=== PATIENT | male | born 1930 | race Caucasian/White ===

== ENCOUNTER → 2016-12-03 | Outpatient (CLI) | payer MEDICARE, BC ==
[~2016-12-03] MED LIST: CALCIUM 600MG+D1 TAB PO; COLACE 100100 MG/CAP PO; DAZIDOX10 MG PO; DECADRON 1MG TAB1 MG PO; DULCOLAX S10 MG/SUPP RC; FENTANYL 25 MCG TD; FENTANYL 50MCG TD; FENTANYL TD; MIRALAX PA17 GM/Dose PO; MOTRIN 200200 MG/TAB PO; NYSTATIN POWDER15 GM TOP; OXY IR5 MG PO; PRILOSEC 20MG20 MG PO; STOOL SOFTENER100 M2 PO; TIMOLOL OU; TUMS500 MG PO; TYLENOL 500MG500 MG PO; XALATAN EYE DROPS OU; XTANDI40 MG PO; ZANTAC 150150 MG PO; ZANTAC150 MG PO
== END ==
LOC: COL.RAD 07:30
DX: C61 Malignant neoplasm of prostate (principal); C79.51 Secondary malignant neoplasm of bone; I10 Essential (primary) hypertension; M48.02 Spinal stenosis, cervical region
CPT/HCPCS: A9585

== ENCOUNTER 2017-01-04 12:41 | Inpatient (IN) | payer MEDICARE, BC ==
[~2017-01-04] VITALS: Ht 177.8 cm; Wt 94.1 kg
[~2017-01-04 12:41] MED LIST changes: -CALCIUM 600MG+D1 TAB PO; -COLACE 100100 MG/CAP PO; -DAZIDOX10 MG PO; -DECADRON 1MG TAB1 MG PO; -DULCOLAX S10 MG/SUPP RC; -FENTANYL 25 MCG TD; -FENTANYL 50MCG TD; -FENTANYL TD; -MIRALAX PA17 GM/Dose PO; -NYSTATIN POWDER15 GM TOP; -OXY IR5 MG PO; -PRILOSEC 20MG20 MG PO; -STOOL SOFTENER100 M2 PO; -TIMOLOL OU; -XTANDI40 MG PO
[2017-01-04 13:28] LABS: ADJUSTED CALCIUM 8.7 mg/dL (8.4-10.2); ALBUMIN 3.2 gm/dL (3.5-5.0); BILIRUBIN,TOTAL 1.1 mg/dL (0.0-1.0); C-REACTIVE PROTEIN 2.1 mg/dL (0.0-0.9); CALCIUM 8.1 mg/dL (8.4-10.2); CREATININE, serum 0.73 mg/dL (0.66-1.25); TOTAL PROTEIN 5.9 gm/dL (6.4-8.2)
[2017-01-04 13:32] LABS: MEAN CELL VOLUME 86 fl (80.0-100.0); MEAN CORPUSCULAR HGB CONC 35 g/dl (33.0-37.0); MEAN PLATELET VOLUME 9.8 fl (7.4-10.4); PLATELET COUNT 209 K/mm3 (130-400); RED BLOOD COUNT 2.45 M/mm3 (4.20-5.60); REDCELL DISTRIBUTION WIDTH-CV 13.3 % (11.5-14.5); WHITE BLOOD COUNT 6.5 K/mm3 (4.8-10.8)
[2017-01-04 13:35] LABS: HEMATOCRIT 21.1 % (42.0-52.0); MEAN CORPUSCULAR HEMOGLOBIN 30 pg (27.0-31.0)
[2017-01-04 13:36] LABS: ADD PATHOLOGY DIFF REVIEW NO; HEMOGLOBIN 7.3 g/dl (13.5-18.0)
[2017-01-04 13:48] LABS: PH 5 (5-8); SQUAMOUS EPITHELIAL 0-2 /hpf; URINE APPEARANCE Hazy; URINE BACTERIA None Seen /hpf; URINE BILIRUBIN Negative (NEGATIVE); URINE BLOOD Negative (NEGATIVE); URINE COLOR Yellow; URINE GLUCOSE Negative (NEGATIVE); URINE KETONE Negative (NEGATIVE); URINE RBC 0-2 /hpf; URINE UROBILINOGEN Negative (NEGATIVE); URINE WBC 0-2 /hpf
[2017-01-04 14:08] LABS: BAND 13 % (0-10); NEUTROPHILS 74 % (42.0-75.2); PLATELET ESTIMATE NORMAL (NORMAL); POLYCHROMASIA 1+; TOTAL CELLS COUNTED 100
[2017-01-04 14:09] LABS: TOXIC GRANULATION PRESENT
[2017-01-04] MEDS ORDERED: PRILOSEC 20MG20 MG PO ×2 (14:31→14:33)
[2017-01-04] MEDS ORDERED: DECADRON 1MG TAB1 MG PO ×2 (14:31→14:34)
[2017-01-04] MEDS ORDERED: TIMOLOL OU (14:32)
[2017-01-04] MEDS ORDERED: CALCIUM 600MG+D1 TAB PO (14:32)
[2017-01-04] MEDS ORDERED: FENTANYL 25 MCG TD (14:32)
[2017-01-04] MEDS ORDERED: XTANDI40 MG PO (14:34)
[2017-01-04] MEDS ORDERED: MIRALAX PA17 GM/Dose PO (14:34)
[2017-01-04] MEDS ORDERED: XALATAN EYE DROPS OU (14:34)
[2017-01-04] MEDS ORDERED: STOOL SOFTENER100 M2 PO (14:35)
[2017-01-04] MEDS ORDERED: OXY IR5 MG PO (14:35)
[2017-01-04] MEDS ORDERED: NYSTATIN POWDER15 GM TOP (14:36)
[2017-01-04 18:06] VITALS: BP 91/52; PULSE 106; TEMP 97.8
[2017-01-04 19:21] VITALS: BP 88/48; PULSE 104; TEMP 97.9
[2017-01-04 20:14] LABS: CREATININE, serum 0.73 mg/dL (0.66-1.25)
[2017-01-04 20:19] LABS: FRACTIONAL EXCRETION OF NA+ 0.1 %
[2017-01-04 22:23] VITALS: BP 110/54; PULSE 104; TEMP 98.4
[2017-01-04 22:42] VITALS: BP 94/47; PULSE 99; TEMP 98.4
[2017-01-04 23:04] VITALS: BP 95/47; PULSE 101; TEMP 98.4
[2017-01-04 23:43] VITALS: BP 105/52; PULSE 100; TEMP 98.5
[2017-01-05] VITALS (7 sets, daily range): BP systolic 96–135; BP diastolic 50–76; PULSE 90–115; TEMP 97.8–98.4
[2017-01-05 07:21] LABS: ADD PATHOLOGY DIFF REVIEW NO
[2017-01-05 07:35] LABS: INR 1.2 (0.8-3.0); PROTHROMBIN TIME 12.9 SECONDS (9.7-12.8)
[2017-01-05 07:48] LABS: MEAN CELL VOLUME 85 fl (80.0-100.0); MEAN CORPUSCULAR HGB CONC 36 g/dl (33.0-37.0); MEAN PLATELET VOLUME 9.8 fl (7.4-10.4); PLATELET COUNT 219 K/mm3 (130-400); RED BLOOD COUNT 2.51 M/mm3 (4.20-5.60); REDCELL DISTRIBUTION WIDTH-CV 13.3 % (11.5-14.5); RETIC % 1.6 % (0.5-3.52); WHITE BLOOD COUNT 5.7 K/mm3 (4.8-10.8)
[2017-01-05 07:59] LABS: HEMATOCRIT 21.3 % (42.0-52.0); HEMOGLOBIN 7.6 g/dl (13.5-18.0); MEAN CORPUSCULAR HEMOGLOBIN 30 pg (27.0-31.0)
[2017-01-05 08:02] LABS: ADJUSTED CALCIUM 8.8 mg/dL (8.4-10.2); ALBUMIN 2.8 gm/dL (3.5-5.0); BILIRUBIN,TOTAL 1.2 mg/dL (0.0-1.0); CALCIUM 7.8 mg/dL (8.4-10.2); CREATININE, serum 0.65 mg/dL (0.66-1.25); MAGNESIUM 1.8 mg/dL (1.6-2.3); PHOSPHOROUS 2.4 mg/dL (2.5-4.5); POTASSIUM 4.9 mmol/L (3.4-5.0); TOTAL PROTEIN 5.5 gm/dL (6.4-8.2)
[2017-01-05 08:04] LABS: BAND 25 % (0-10); BASOPHIL 1 % (0-2); EOSINOPHIL 1 % (0-4); NEUTROPHILS 63 % (42.0-75.2); PLATELET ESTIMATE NORMAL (NORMAL); TOTAL CELLS COUNTED 100
[2017-01-06] VITALS (9 sets, daily range): BP systolic 90–114; BP diastolic 47–59; PULSE 87–101; TEMP 97.9–99.4
[2017-01-06 06:57] LABS: ADD PATHOLOGY DIFF REVIEW NO
[2017-01-06 07:02] LABS: MEAN CELL VOLUME 86 fl (80.0-100.0); MEAN CORPUSCULAR HGB CONC 35 g/dl (33.0-37.0); MEAN PLATELET VOLUME 9.7 fl (7.4-10.4); PLATELET COUNT 168 K/mm3 (130-400); RED BLOOD COUNT 2.21 M/mm3 (4.20-5.60); REDCELL DISTRIBUTION WIDTH-CV 13.6 % (11.5-14.5); WHITE BLOOD COUNT 4.3 K/mm3 (4.8-10.8)
[2017-01-06 07:11] LABS: HEMATOCRIT 18.9 % (42.0-52.0); HEMOGLOBIN 6.7 g/dl (13.5-18.0); MEAN CORPUSCULAR HEMOGLOBIN 30 pg (27.0-31.0)
[2017-01-06 07:31] LABS: ADJUSTED CALCIUM 8.6 mg/dL (8.4-10.2); ALBUMIN 2.4 gm/dL (3.5-5.0); BILIRUBIN,TOTAL 0.9 mg/dL (0.0-1.0); CALCIUM 7.3 mg/dL (8.4-10.2); CREATININE, serum 0.59 mg/dL (0.66-1.25); MAGNESIUM 1.8 mg/dL (1.6-2.3); POTASSIUM 4.6 mmol/L (3.4-5.0); TOTAL PROTEIN 4.6 gm/dL (6.4-8.2)
[2017-01-06 07:58] LABS: BAND 25 % (0-10); NEUTROPHILS 63 % (42.0-75.2); TOTAL CELLS COUNTED 100
[2017-01-07] VITALS (10 sets, daily range): BP systolic 99–124; BP diastolic 55–78; PULSE 69–97; TEMP 97.6–98.8
[2017-01-07 12:21] LABS: ADD PATHOLOGY DIFF REVIEW NO
[2017-01-07 12:30] LABS: MEAN CELL VOLUME 88 fl (80.0-100.0); MEAN CORPUSCULAR HGB CONC 35 g/dl (33.0-37.0); MEAN PLATELET VOLUME 9.4 fl (7.4-10.4); PLATELET COUNT 149 K/mm3 (130-400); RED BLOOD COUNT 2.76 M/mm3 (4.20-5.60); REDCELL DISTRIBUTION WIDTH-CV 13.9 % (11.5-14.5); WHITE BLOOD COUNT 4.6 K/mm3 (4.8-10.8)
[2017-01-07 12:32] LABS: HEMATOCRIT 24.2 % (42.0-52.0); HEMOGLOBIN 8.4 g/dl (13.5-18.0); MEAN CORPUSCULAR HEMOGLOBIN 30 pg (27.0-31.0)
[2017-01-07 13:26] LABS: BAND 26 % (0-10); METAMYELOCYTE 1 % (0-0); NEUTROPHILS 70 % (42.0-75.2); TOTAL CELLS COUNTED 100
[2017-01-08 04:31] VITALS: BP 121/67; PULSE 87; TEMP 97.8
[2017-01-08 07:33] LABS: ADD PATHOLOGY DIFF REVIEW NO
[2017-01-08 07:38] VITALS: BP 118/60; PULSE 74; TEMP 98.9
[2017-01-08 07:39] LABS: MEAN CELL VOLUME 88 fl (80.0-100.0); MEAN CORPUSCULAR HGB CONC 35 g/dl (33.0-37.0); MEAN PLATELET VOLUME 9.5 fl (7.4-10.4); PLATELET COUNT 162 K/mm3 (130-400); RED BLOOD COUNT 2.81 M/mm3 (4.20-5.60); REDCELL DISTRIBUTION WIDTH-CV 14.3 % (11.5-14.5); WHITE BLOOD COUNT 3.7 K/mm3 (4.8-10.8)
[2017-01-08 07:48] LABS: HEMATOCRIT 24.6 % (42.0-52.0); HEMOGLOBIN 8.7 g/dl (13.5-18.0); MEAN CORPUSCULAR HEMOGLOBIN 31 pg (27.0-31.0)
[2017-01-08 07:54] LABS: ADJUSTED CALCIUM 8.5 mg/dL (8.4-10.2); ALBUMIN 2.5 gm/dL (3.5-5.0); BILIRUBIN,TOTAL 1.1 mg/dL (0.0-1.0); CALCIUM 7.3 mg/dL (8.4-10.2); CREATININE, serum 0.53 mg/dL (0.66-1.25); POTASSIUM 4.2 mmol/L (3.4-5.0); TOTAL PROTEIN 5.1 gm/dL (6.4-8.2)
[2017-01-08 11:00] VITALS: BP 103/52; PULSE 64; TEMP 98.1
[2017-01-08 13:50] LABS: BAND 3 % (0-10); BASOPHIL 1 % (0-2); NEUTROPHILS 83 % (42.0-75.2); TOTAL CELLS COUNTED 100
[2017-01-08 13:52] LABS: HYPOCHROMIA 1+; SPHEROCYTE 1+
[2017-01-08 13:53] LABS: POLYCHROMASIA 1+; ROULEAUX 1+
[2017-01-08 16:11] VITALS: BP 117/63; PULSE 98; TEMP 98.1
[2017-01-08 19:32] VITALS: BP 114/63; PULSE 97; TEMP 98.9
[2017-01-08 23:27] VITALS: BP 108/62; PULSE 92; TEMP 97.9
[2017-01-09 04:04] VITALS: BP 104/54; PULSE 87; TEMP 98.1
[2017-01-09 07:38] LABS: ADD PATHOLOGY DIFF REVIEW NO
[2017-01-09 07:53] LABS: CALCIUM 7.5 mg/dL (8.4-10.2); CREATININE, serum 0.5 mg/dL (0.66-1.25); MAGNESIUM 1.9 mg/dL (1.6-2.3); POTASSIUM 3.9 mmol/L (3.4-5.0)
[2017-01-09 07:54] LABS: MEAN CELL VOLUME 89 fl (80.0-100.0); MEAN CORPUSCULAR HGB CONC 35 g/dl (33.0-37.0); MEAN PLATELET VOLUME 9.3 fl (7.4-10.4); PLATELET COUNT 154 K/mm3 (130-400); RED BLOOD COUNT 2.72 M/mm3 (4.20-5.60); REDCELL DISTRIBUTION WIDTH-CV 15.5 % (11.5-14.5); WHITE BLOOD COUNT 3.4 K/mm3 (4.8-10.8)
[2017-01-09 08:22] LABS: HEMATOCRIT 24.2 % (42.0-52.0); HEMOGLOBIN 8.5 g/dl (13.5-18.0); MEAN CORPUSCULAR HEMOGLOBIN 31 pg (27.0-31.0)
[2017-01-09 08:44] VITALS: BP 114/64; PULSE 94; TEMP 98.4
[2017-01-09 10:22] LABS: ANISOCYTOSIS 1+; BAND 18 % (0-10); BASOPHIL 1 % (0-2); EOSINOPHIL 1 % (0-4); NEUTROPHILS 61 % (42.0-75.2); POLYCHROMASIA 1+; TOTAL CELLS COUNTED 100
[2017-01-09 10:23] LABS: HYPOCHROMIA 1+
[2017-01-09] MEDS ORDERED: DAZIDOX10 MG PO (12:05)
[2017-01-09] MEDS ORDERED: COLACE 100100 MG/CAP PO (12:07)
[2017-01-09] MEDS ORDERED: DULCOLAX S10 MG/SUPP RC (12:07)
[2017-01-09] MEDS ORDERED: FENTANYL TD (12:08)
[2017-01-09 12:12] VITALS: BP 112/45; PULSE 105; TEMP 99
[2017-01-09] MEDS ORDERED: FENTANYL 25 MCG TD (12:26)
[2017-01-09] MEDS ORDERED: FENTANYL 50MCG TD (12:30)
== END 2017-01-09 13:45 | DRG 640 ==
LOC: COL.ER 12:41 → MEDICAL 14:00
PROVIDERS: Emergency Medicine; Internal Medicine
DX: R62.7 Adult failure to thrive (principal); J69.0 Pneumonitis due to inhalation of food and vomit; E44.0 Moderate protein-calorie malnutrition; C79.51 Secondary malignant neoplasm of bone; E87.1 Hypo-osmolality and hyponatremia; Z66 Do not resuscitate; C61 Malignant neoplasm of prostate; E86.0 Dehydration; D50.9 Iron deficiency anemia, unspecified
CPT/HCPCS: 99223-AI; 99232-AI; 99233-AI; J0692; J1650; J7030; J7040; J8540; P9016